=== PATIENT | male | born 1970 | race Caucasian/White ===

== ENCOUNTER 2020-09-01 11:07 | Emergency (ER) | payer OTHER, SELFPAY ==
[2020-09-01] VITALS (7 sets, daily range): BP systolic 120–163; BP diastolic 38–96; PULSE 68–92; RESP 18; TEMP 36.7; O2SAT 97–100
--- NOTE | ~2020-09-01 | CT_ITS ---
EXAMINATION: CT abdomen pelvis w con DATE: 09/01/2020 12:26 INDICATION: Left lower quadrant abdominal pain TECHNIQUE: Computed tomography (CT) of the abdomen and pelvis was performed with 100 cc Omnipaque 350 intravenous contrast. Automated exposure control and iterative reconstruction technique were employe d. Exam dose: 841.08 mGy-cm total exam DLP. COMPARISON: None. FINDINGS: The lung bases are clear. Normal heart size. No pericardial or pleural effusion. Small sliding hiatal hernia. The liver, gallbladder, bile ducts, pancreas and pancreatic duct appear normal. Normal splenic size. Normal morphology of the adrenal glands. No suspicious renal mass lesion is evident. No urinary tract calculus or hydroureteronephrosis. Normal caliber of the abdominal aorta. No intraperitoneal or retroperitoneal or pelvic mass lesion or adenopathy or ascites. Prostate enlargement and minimal calcification. The urinary bladder is unremarkable. Small fat-containing left inguinal hernia. There is focal fat stranding adjacent to the distal descending colon due to epiploic appendagitis. No bowel obstruction, bowel wall thickening, pneumatosis or intraperitoneal free air noted otherwise. L4 limbus vertebra. Diffuse idiopathic skeletal hyperostosis of the thoracic spine. No suspicious ost eolytic or osteoblastic lesions IMPRESSION: Epiploic appendagitis of the distal descending colon. This is usually self-contained and resolves spontaneously. Small sliding hiatal hernia Prostate enlargement and minimal calcification Small fat-containing left inguinal hernia Reviewed, dictated and finalized at [facility] Reviewed, dictated and finalized at [facility] [employer] CL[employer] IMPRESSION: Epiploic appendagitis of the distal descending colon. This is usua lly self-contained and resolves spontaneously. Small sliding hiatal hernia Prostate enlargement and minimal calcification Small fat-containing left inguinal hernia
[2020-09-01] MEDS: SODIUM CHLORIDE 0.9% IV 1,000 ML 999 ML IV CONT (11:26)
[2020-09-01 11:29] LABS: Basophils Absolute Auto 0.1 K/mm3 (0.0-0.1); Basophils Percent Auto 0.9 % (0.2-1.2); Eosinophils Absolute Auto 0.1 K/mm3 (0-0.3); Eosinophils Percent Auto 0.9 % (0-4.4); Hematocrit 46.7 % (42.0-52.0); Immature Granulocyte Absolute 0.09 K/mm3 (0.00-0.031); Immature Granulocyte Percent A 1.1 % (0-0.5); Lymphocytes Absolute Auto 2.07 K/mm3 (0.9-3.2); Lymphocytes Percent Auto 25.2 % (18.3-44.2); Mean Corpuscular HGB Conc 34.3 g/dl (32-36); Mean Corpuscular Hemoglobin 30.2 pg (26-34); Mean Corpuscular Volume 88.3 fl (80-100); Mean Platelet Volume 9.3 fl (7.4-10.4); Monocytes Absolute Auto 0.7 K/mm3 (0.1-0.6); Monocytes Percent Auto 8.3 % (2.6-8.5); Neutrophils Absolute Auto 5.3 K/mm3 (1.3-6.7); Neutrophils Percent Auto 63.6 % (45.5-73.1); Platelet Count Result 184 k/mm3 (150-375); Red Blood Count 5.29 M/mm3 (4.6-6.20); Red Cell Distribution Width 12.7 % (11.5-14.5); White Blood Count 8.2 K/mm3 (4.5-10.0)
--- NOTE | 2020-09-01 11:32 | ED.GENADULT ---
HPI - General Adult General Chief complaint: Abdominal Pain Stated complaint: left flank pain Time Seen by Provider: 09/01/20 11:10 Source: patient Mode of arrival: ambulatory Limitations: no limitations History of Present Illness HPI narrative: Patient is a 50-year-old male who presents to emergency department for evaluation of left lower abdominal pain. Patient notes that the pain began last night upon going to sleep was more mild in nature patient notes this morning it has intensified to moderate to severe in nature localized to the left lower abdomen and groin. Patient denies similar occurrence in the past recent illness or other complaints has not taken anything for his symptoms presents in no distress. Related Data Home Medications Medication Instructions Recorded Confirmed aspirin 325 mg PO DAILY 09/01/20 Allergies Allergy/AdvReac Type Severity Reaction Status Date / Time tetracycline Allergy Unknown Verified 09/01/20 11:18 Review of Systems Review of Systems: All systems reviewed & are unremarkable except as noted in HPI and below PMFSH Past Medical History Medical History Atrial fibrillation Social History Social History (Updated 09/01/20 @ 11:35 by Kamran Contreras PA-C) Smoking status: Never smoker Gender identity (if verbalized by the patient): Male Exam Narrative: Exam Narrative: GENERAL: Well-appearing, well-nourished, and in no acute distress. HEAD: Normocephalic, atraumatic. EYES: PERRLA and EOMI. ENT: Nares clear, no rhinorrhea or epistaxis. Mucous membranes moist. CHEST: Clear to auscultation. No respiratory distress. No wheezes rales or rhonchi HEART: Regular rate and rhythm. No murmur heard. Normal peripheral pulses. ABDOMEN: Soft, left upper and lower abdominal tenderness with voluntary guarding, nondistended EXTREMITIES: Normal range of motion. No edema. SKIN: Warm, dry, no rash. NEURO: No focal deficits. Alert and oriented x3. Cranial nerves II through XII grossly intact PSYCH: Normal mood and affect. Course Course Emergency Course: Patient in the room no distress with improvement with medications found to have epiploic appendagitis on imaging will be discharged home given primary care and GI follow-up also provided with reasons to return was given fluids and medications in the emergency department with improvement patient is afebrile nontoxic-appearing no distress ABCs and vital signs intact and stable Vital Signs Vital signs: Vital Signs Temperature 98.1 F 09/01/20 11:15 Pulse Rate 92 09/01/20 11:15 Respiratory Rate 18 09/01/20 11:15 Blood Pressure 163/96 H 09/01/20 11:15 Pulse Oximetry 100 09/01/20 11:15 Temperature 98.1 F 09/01/20 11:55 Pulse Rate 78 09/01/20 12:37 Respiratory Rate 18 09/01/20 12:37 Blood Pressure 149/90 H 09/01/20 12:37 Pulse Oximetry 100 09/01/20 12:37 Medical Decision Making MDM Narrative Medical decision making narrative: Patient presented with left lower quadrant abdominal pain diagnosed as epiploic appendagitis felt appropriate for outpatient reevaluation no other high risk changes given reasons to return hemodynamically stable Vital Signs Vital Signs: Vital Signs Temperature 98.1 F 09/01/20 11:15 Pulse Rate 92 09/01/20 11:15 Respiratory Rate 18 09/01/20 11:15 Blood Pressure 163/96 H 09/01/20 11:15 Pulse Oximetry 100 09/01/20 11:15 Temperature 98.1 F 09/01/20 11:55 Pulse Rate 78 09/01/20 12:37 Respiratory Rate 18 09/01/20 12:37 Blood Pressure 149/90 H 09/01/20 12:37 Pulse Oximetry 100 09/01/20 12:37 Lab Data Result diagrams: 09/01/20 11:24 09/01/20 11:24 Labs: Lab Results 09/01/20 09/01/20 09/01/20 Range/Units 11:24 11:24 11:39 WBC 8.2 (4.5-10.0) K/mm3 RBC 5.29 (4.6-6.20) M/mm3 Hgb 16.0 (14.0-18.0) g/dL Hct 46.7 (42.0-52.0) % MCV 88.3 (80-100)
[2020-09-01 11:44] LABS: Alanine Aminotransferase 21 U/L (4-50); Albumin Level 4.4 g/dL (3.5-5.1); Alkaline Phosphatase 54 U/L (38-126); Anion Gap 8 mmol/L (8-16); Aspartate Amino Transferase 25 U/L (17-59); Bilirubin,Total 0.6 mg/dL (0.2-1.3); Blood Urea Nitrogen 21 mg/dL (9-20); Calcium 9.4 mg/dL (8.4-10.2); Carbon Dioxide 27 mmol/L (22-30); Chloride 105 mmol/L (98-107); Estimated CRCL calculation 90 ml/min; Estimated Glomerular Filt Rate > 60; Glucose 111 mg/dL (75-110); Lipase 125 U/L (23-300); Potassium 3.8 mmol/L (3.4-5.0); Sodium 140 mmol/L (137-145)
[2020-09-01 11:50] LABS: Add Urine Microscopic? NO; Appearance Urine Clear (Clear); Bilirubin Urine Negative (Negative); Blood Urine Negative (Negative); Color Urine Yellow (Yellow); Glucose Urine UA Negative (Negative); Ketones Urine Negative (Negative); Leukocyte Esterase Ur Negative LEU/UL (Negative); Nitrate Urine Negative (Negative); Protein Urine Negative (Negative); Specific Grav Ur 1.017 (1.001-1.035); Urobilinogen Urine Negative mg/dL (<2.0)
[2020-09-01] MEDS: MORPHINE SULFATE (*CRX) 4 MG/ML INJ IV PUSH (12:36)
[2020-09-01] MEDS: KETOROLAC 30 MG/ML VIAL (*BKC) IV PUSH (13:11)
== END 2020-09-01 13:58 | disposition home or self-care (01) ==
PROVIDERS: Emergency Medicine Emergency Medical Services; Emergency Provider Emergency Medicine
DX: K63.89 Other specified diseases of intestine (principal); I48.91 Unspecified atrial fibrillation; Z79.82 Long term (current) use of aspirin
CPT/HCPCS: 36415; 74177; 80053; 81003; 83690; 85025; 96365; 96375; 99284; J0131; J1885; J2270; J7030; Q9967

== ENCOUNTER 2020-10-20 15:49 | Observation (INO) | payer OTHER, SELFPAY ==
[2020-10-20] VITALS (10 sets, daily range): BP systolic 103–120; BP diastolic 67–96; PULSE 79–114; RESP 15–18; TEMP 36.7–37.2; O2SAT 94–98; BMI 29.2
--- NOTE | ~2020-10-20 | CT_ITS ---
EXAMINATION: CTA chest PE protocol DATE: 10/20/2020 19:58 INDICATION: Shortness of breath. Covid-positive. TECHNIQUE: Computed tomography angiography (CTA) of the chest was performed with 100 mL Omnipaque-350 intravenous contrast timed to evaluate the pulmonary arteries. Coronal maximum intensity projection 3D-reconstructions were created by the technologist. Automated exposure control and iterative reconst ruction technique were employed. Exam dose: 442.73 mGy-cm total exam DLP. COMPARISON: 10/20/2020 portable AP chest FINDINGS: There is diagnostic contrast enhancement of the pulmonary artery no evidence of pulmonary e mbolism. No hilar or mediastinal mass lesion or lymphadenopathy. No thoracic aortic aneurysm or dissection. Normal heart size. Coronary artery calcifications. Calcified right hilar and subcarinal nodes consistent with old pulmonary granulomatous disease. No pericardial or pleural effusion. Extensive patchy groundglass infiltrates are scattered throughout both lungs including upper and lowe r lobes and middle lobe. Normal morphology of the adrenal glands. Small sliding hiatal hernia. Diffuse idiopathic skeletal hyperostosis of the lower thoracic spine. No suspicious osteolytic or osteoblastic lesions. IMPRESSION: Extensive patchy scattered bilateral pulmonary groundglass opacities consistent with tosha ateral pneumonia Reviewed, dictated and finalized at [facility] Reviewed, dictated and finalized at [facility]. IMPRESSION: Extensive patchy scattered bilateral pulmonary groundglass opaciti es consistent with bilateral pneumonia
--- NOTE | ~2020-10-20 | XR_ITS ---
XR chest 1V portable DATE: 10/20/2020 16:58 INDICATION: Cough, congestion, fever, body aches TECHNIQUE: Portable AP chest on 10/20/2020 at 1659 hours COMPARISON: None FINDINGS: Heart size is normal. There are patchy infiltrates predominantly in the mid and to a greater extent lower lung zones sugges ting bilateral pneumonia. No pleural effusion or pulmonary mass congestion or pneumothorax is detected. IMPRESSION: Patchy bilateral predominantly mid mid and lower lung infiltrate Reviewed, dictated and finalized at [facility].
--- NOTE | 2020-10-20 16:16 | ECG_ITS ---
Measurements Intervals [place] Rate: 83 P: 36 NM: 149 QRS: 24 QRSD: 74 T: 29 QT: 327 QTc: 386 Interpretive Statements SINUS RHYTHM NORMAL ECG Electronically Signed On 10-20-2020 17:49:35 CDT by Ricardo Stevens D.O.
--- NOTE | 2020-10-20 16:30 | ED.GENADULT ---
HPI - General Adult General Chief complaint: Upper Respiratory Infection <BRAULIO Whittington Last Filed: 10/20/20 20:38> Stated complaint: covid +, still sick <BRAULIO Whittington Last Filed: 10/20/20 20:38> Time Seen by Provider: 10/20/20 16:15 <BRAULIO Whittington Last Filed: 10/20/20 20:38> Source: patient <BRAULIO Whittington Last Filed: 10/20/20 20:38> Mode of arrival: ambulatory <BRAULIO Whittington Last Filed: 10/20/20 20:38> Limitations: no limitations <BRAULIO Whittington Last Filed: 10/20/20 20:38> History of Present Illness HPI narrative: Patient is a 50-year-old male who presents to emergency department for evaluation feeling ill fatigued day 8 of his Covid illness has been taking [id number] medications with minimal improvement denies chest pain or dyspnea at this time notes that his cough is nonproductive. Patient notes some loose stools but denies vomiting does not currently have a primary care to follow-up. Patient has history of atrial fibrillation historically on metoprolol has not taken this medication for over a year does not have established primary care or specialty services <BRAULIO Whittington Last Filed: 10/20/20 20:38> Related Data Home medications: Home Medications Medication Instructions Recorded Confirmed No Home Medications 10/20/20 10/20/20 <BRAULIO Whittington Last Filed: 10/20/20 20:38> Allergies/adverse reactions: Allergies Allergy/AdvReac Type Severity Reaction Status Date / Time tetracycline Allergy Unknown Verified 10/20/20 22:14 <BRAULIO Whittington Last Filed: 10/20/20 20:38> Review of Systems Review of Systems: All systems reviewed & are unremarkable except as noted in HPI and below <BRAULIO Whittington Last Filed: 10/20/20 20:38> PMFSH Past Medical History Medical History: Medical History (Updated 10/20/20 @ 21:45 by Annika Rosen DO) Atrial fibrillation <BRAULIO Whittington Last Filed: 10/20/20 20:38> Social History Social History: Social History Smoking status: Never smoker Alcohol intake: current Substance use: never Gender identity (if verbalized by the patient): Male Sexual Orientation (if Verbalized by the Patient): Straight or Heterosexual Spiritual care concerns: No <Kamran Contreras PA-C - Last Filed: 10/20/20 20:38> Exam Narrative: Exam Narrative: GENERAL: Ill-appearing, well-nourished, and in no acute distress. HEAD: Normocephalic, atraumatic. EYES: PERRLA and EOMI. ENT: Nares clear, no rhinorrhea or epistaxis. Mucous membranes moist. CHEST: Clear to auscultation. No respiratory distress. No wheezes rales or rhonchi HEART: Irregularly irregular rate and rhythm. No murmur heard. Normal peripheral pulses. ABDOMEN: Soft, nontender, nondistended. EXTREMITIES: Normal range of motion. No edema. SKIN: Warm, dry, no rash. NEURO: No focal deficits. Alert and oriented x3. Cranial nerves II through XII grossly intact PSYCH: Normal mood and affect. <Kamran Contreras PA-C - Last Filed: 10/20/20 20:38> Course Course Emergency Course: Patient evaluated found to not have PE he does have Covid pneumonia with dehydration and currently in atrial fibrillation with RVR was given Lopressor will be given his oral dose of metoprolol as recommended by cardiology will be admitted to the hospitalist service with cardiology consult. Patient hydrated in the emergency department. Patient hemodynamically stable afebrile nontoxic-appearing without emesis patient agrees with this plan <Kamran Contreras PA-C - Last Filed: 10/20/20 20:38> SOCIAL WORK FACULTY MEMBER/PA Physician Supervision For this patient encounter, I reviewed the SOCIAL WORK FACULTY MEMBER or PA documentation, treatment plan, and medical decision making; and I had [id number] time with this patient. 50 yo male w/ h/o atrial fibrillation pre
[2020-10-20 16:57] LABS: Basophils Percent Auto 0.2 % (0.2-1.2); Hemoglobin 15.4 g/dL (14.0-18.0); Immature Granulocyte Absolute 0.05 K/mm3 (0.00-0.031); Immature Granulocyte Percent A 1.1 % (0-0.5); Lymphocytes Absolute Auto 0.88 K/mm3 (0.9-3.2); Lymphocytes Percent Auto 20.1 % (18.3-44.2); Mean Corpuscular Hemoglobin 29.9 pg (26-34); Mean Corpuscular Volume 85.4 fl (80-100); Mean Platelet Volume 9.4 fl (7.4-10.4); Monocytes Absolute Auto 0.3 K/mm3 (0.1-0.6); Monocytes Percent Auto 6.2 % (2.6-8.5); Neutrophils Absolute Auto 3.2 K/mm3 (1.3-6.7); Neutrophils Percent Auto 72.4 % (45.5-73.1); Platelet Count Result 141 k/mm3 (150-375); Red Blood Count 5.15 M/mm3 (4.6-6.20); Red Cell Distribution Width 12.9 % (11.5-14.5); White Blood Count 4.4 K/mm3 (4.5-10.0)
[2020-10-20 17:06] LABS: Prothrombin Time 13.7 Seconds (11.1-14.7)
[2020-10-20 17:07] LABS: Partial Thromboplastin Time 31.5 SECONDS (22.3-36.8)
[2020-10-20 17:09] LABS: Alanine Aminotransferase 37 U/L (4-50); Alkaline Phosphatase 55 U/L (38-126); Anion Gap 8 mmol/L (8-16); Aspartate Amino Transferase 71 U/L (17-59); Bilirubin,Total 0.6 mg/dL (0.2-1.3); Blood Urea Nitrogen 27 mg/dL (9-20); CRP 5.6 mg/dL (<1.0); Calcium 8.8 mg/dL (8.4-10.2); Carbon Dioxide 25 mmol/L (22-30); Chloride 103 mmol/L (98-107); D Dimer 0.55 ug/mL (<0.48); Estimated CRCL calculation 82 ml/min; Estimated Glomerular Filt Rate > 60; Glucose 102 mg/dL (75-110); Potassium 4.1 mmol/L (3.4-5.0); Sodium 136 mmol/L (137-145)
[2020-10-20] MEDS: DEXAMETHASONE SOD PHOS INJ 4 MG/ML VIAL 10 MG IV PUSH (17:24)
[2020-10-20] MEDS: FAMOTIDINE 20 MG/2 ML VIAL IV PUSH (17:27)
[2020-10-20] MEDS: SODIUM CHLORIDE 0.9% IV 1,000 ML 999 ML IV CONT ×2 (17:28→20:14)
--- NOTE | 2020-10-20 19:20 | PC.NURSE ---
assumed care of pt at this time, received report from nasir cassidy
[2020-10-20] MEDS: METOPROLOL TARTRATE INJ 5 MG/5 ML VIAL IV PUSH (20:30)
[2020-10-20] MEDS: METOPROLOL SUCCINATE EXT REL 12.5 MG TABCR PO (21:03)
[2020-10-20 21:19] LABS: Cholesterol 138 mg/dL (0-200); HDL Direct 26 mg/dL; Triglycerides 238 mg/dL (<150)
[2020-10-20 21:29] LABS: LDL Cholesterol Direct 67 mg/dL
--- NOTE | 2020-10-20 21:42 | PM.IMHP ---
H&P: HPI History of Present Illness Date/Time: 10/20/20 21:42 Chief Complaint: COVID not getting better Narrative: 50-year-old male past medical history of atrial fibrillation and recent COVID diagnosis who presented to the ER with respiratory symptoms not getting better. The patient reports that he is and is son have been ill with COVID-19. He has had 8 days of symptoms. His initial symptoms started with cough and body aches. Over the following days he developed loss of sense of taste and smell as well as some watery diarrhea. He reports his diarrhea has pretty much resolved. He reports that his cough is been persistent. He has significant postnasal drip. He has a decreased appetite. He denies any nausea or vomiting. He had some subjective fevers but states that his temperature was never above 99?. He did have significant chills. His respiratory symptoms really have not worsened. He has been taking [id number] medications with minimal improvement in his symptoms. He has not had any chest pain or dyspnea. His cough is nonproductive. He does have a history of paroxysmal atrial fibrillation. He reports the times a day he is stressed he can go into atrial fibrillation. He used to be on metoprolol 12.5 mg p.o. reports atrial fibrillation. He reported that he was only supposed to take the medication if he was having AFib symptoms. He states that he always knows when he goes into AFib. He quit taking the metoprolol as he felt it did not decrease duration or frequency of his symptoms. He has not taken the medications in at least 10 months. He denies any dyspnea on exertion. He reports that he works out 5 days a week on average. He does not have a history of hypertension. Review of Systems Review of Systems: Narrative: 12 systems were reviewed with pertinent positives and negatives per HPI. Except as documented in the HPI, all other systems were reviewed and are negative. [facility] Past Medical History Medical History (Updated 10/20/20 @ 21:45 by Annika Rosen DO) Atrial fibrillation Social History Social History Smoking status: Never smoker Alcohol intake: current Substance use: never Gender identity (if verbalized by the patient): Male Sexual Orientation (if Verbalized by the Patient): Straight or Heterosexual Spiritual care concerns: No Meds Home Medications and Allergies Home Medications Medication Instructions Recorded Confirmed Type No Home Medications 10/20/20 10/20/20 History Allergies Allergy/AdvReac Type Severity Reaction Status Date / Time tetracycline Allergy Unknown Verified 10/20/20 22:14 Vital Signs Vital Signs - 24 hr 10/20/20 15:50 10/20/20 18:46 10/20/20 18:55 Temperature 99 F Pulse Rate 92 104 H Respiratory Rate 18 16 Blood Pressure 113/79 119/96 H Pulse Oximetry 98 94 97 10/20/20 19:43 10/20/20 20:19 10/20/20 20:30 Temperature 98.0 F Pulse Rate 110 H 114 H Respiratory Rate 15 Blood Pressure Pulse Oximetry 97 10/20/20 21:03 Temperature Pulse Rate 87 Respiratory Rate Blood Pressure Pulse Oximetry Exam Narrative: Exam Narrative: PHYSICAL EXAM: WEIGHT 92.5 kg BMI 29.3 General: Well-developed, well-nourished, appears stated age HEENT: Mucous membranes are moist, no oral pharyngeal erythema, good dentition Respiratory: Faint expiratory wheezing, no increased work of breathing Cardiovascular: Irregularly irregular, rate controlled, 2+ bilateral radial pedal pulses Gastrointestinal: Soft, nontender, nondistended, positive bowel sounds Skin: No jaundice, no pallor Musculoskeletal: No clubbing, cyanosis or edema Neurological: Alert and oriented, speech is clear, no facial asymmetry Psychiatric: Appropriate mood and affect, pleasant and cooperative : Deferred Hematologic/lymphatic: No petechiae, bruising or significant lymphadenopathy H&P: Results Lab
--- NOTE | 2020-10-20 22:02 | ADMGEN ---
This patient, Zechariah Bella, was admitted to [facility] Surg Room 330-01. Patient/family oriented to hospital policies and general routines including ID bracelet, bed and alarms, visiting hours, pain management, procedures, bathroom and other care routines, personal items, smoking policy, room service/diet, and visiting hours. Information on how to activate the Rapid Response Team has been discussed. Patient/Family are encouraged to report perceived risks to care and to ask questions if they do not understand what they are told or what they should do.
[2020-10-21] VITALS (9 sets, daily range): BP systolic 105–120; BP diastolic 75–81; PULSE 76–92; RESP 16–18; TEMP 36.6–36.8; O2SAT 96–98
[2020-10-21] MEDS: METOPROLOL SUCCINATE EXT REL 12.5 MG TABCR PO (09:15)
[2020-10-21] MEDS: guaiFENesin 12 HR 600 MG TABCR 1200 MG PO (09:15)
[2020-10-21] MEDS: ENOXAPARIN 40 MG/0.4 ML SYRINGE SUB-Q (09:15)
--- NOTE | 2020-10-21 11:07 | PM.PNCARD ---
Progress Note: A&P Assessment and Plan (1) Atrial fibrillation with rapid ventricular response: Code(s): I48.91 - Unspecified atrial fibrillation Status: Acute Assessment and Plan: History of paroxysmal atrial fibrillation which generally has not been too bothersome for this patient. Recurrent AFib in the setting of COVID pneumonia, not surprising in view of the physiologic stress. Recommend daily metoprolol for rate control. CHADS2 Vasc score is 0, so at low risk of cardioembolic events, and we can continue aspirin 325 mg daily and no anticoagulation. However if the patient has persistent atrial fibrillation and we entertain cardioversion, he will need to be on anticoagulant. We will follow up as an outpatient. Will give an extra 25 mg metoprolol tartrate now and increase his daily metoprolol succinate to 25 mg daily. Rate seems reasonably controlled. Counseled the patient about general treatment of atrial fibrillation: P.r.n. medication, daily medication, ablation etc.. (2) Pneumonia due to 2019 novel coronavirus: Code(s): U07.1 - COVID-19; J12.82 - Pneumonia due to coronavirus disease 2019 Status: Acute Assessment and Plan: Very tired with frequent coughing but not hypoxic. Probably discharge today. Subjective Date/time seen: 10/21/20 11:07 Interval history: Date of service 10/21/2020 Mr. Zechariah Bella is a 50-year-old male with history of paroxysmal atrial fibrillation. I was asked to see the pt at the request of the ER physician and hospitalist for my advice and opinion regarding his AFib in consultation. The pt contracted COVID pneumonia nine days ago and came to the emergency room yesterday with extreme fatigue. In the ER he went into AFib RVR. His heart rate was 100-120 beats per minute and he was given Lopressor 5 mg IV push, with improvement of heart rate. Overnight his a fib rate has been running 60-70 when asleep and currently 88-105 while awake. He was also given metop succ 12.5 mg this a.m. Mr. Bella has had paroxysmal atrial fibrillation for 3 years. Previously took metoprolol p.r.n. for an episode. He moved from [place] to [facility] and has not yet established care with a office administration instructor here. He has been out of medications for year. His episodes can occur a couple times a week to once every 3 months and can last up to 24 hours. They can be provoked by stress or being startled. He has had echoes in the past which are normal. He has no problems with exertional chest pain or shortness of breath in general although of course, now, he is complaining of shortness of breath and cough. He is thought not hypoxic and thought perhaps able to be discharged today. There is no history of any other heart disease, hypertension, sleep apnea, or thyroid disease. Minimal alcohol intake since diagnosis of atrial fibrillation. Review of Systems Constitutional: Constitutional: Reports fatigue, Reports lethargy and Reports weakness Eyes: Eyes: Reports no additional eye complaints ENT: Denies nasal discharge Cardiovascular: Cardiovascular: Denies chest pain, Denies pedal edema, Denies leg edema and Reports palpitations Respiratory: Respiratory: Reports chest congestion, Reports cough, Denies hemoptysis, Reports dyspnea and Reports dyspnea on exertion Gastrointestinal: Gastrointestinal: Denies abdominal pain Genitourinary: Genitourinary: Denies dysuria Musculoskeletal: Musculoskeletal: Denies back pain Integumentary/Breasts: Skin/Breast: Denies rash Neurologic: Denies confusion Psychiatric: Psychiatric: Denies confusion Exam Narrative: Exam Narrative: Middle-aged male who is alert but having frequent coughing and appears to feel tired. Const: General: no acute distress and uncomfortable HENMT:
[2020-10-21] MEDS: METOPROLOL TARTRATE 25 MG TABLET PO (12:10)
[2020-10-21] MEDS: ACETAMINOPHEN 325 MG TABLET 650 MG PO (12:11)
--- NOTE | 2020-10-21 12:36 | PM.DS ---
DS: Admitting Diagnosis Admitting Diagnosis Admitting Diagnosis: Fatigue, palpitations DS: Discharge Diagnosis Discharge Diagnosis (1) Pneumonia due to 2019 novel coronavirus: Code(s): U07.1 - COVID-19; J12.82 - Pneumonia due to coronavirus disease 2019 Status: Acute (2) Atrial fibrillation: Qualifiers: Atrial fibrillation type: paroxysmal Qualified Code(s): I48.0 - Paroxysmal atrial fibrillation Code(s): I48.91 - Unspecified atrial fibrillation Status: Acute (3) Non-adherence to medical treatment: Code(s): Z91.19 - Patient's noncompliance with other medical treatment and regimen Status: Acute DS: Summary Hospital Course Reason for hospitalization: Patient is a 50-year-old man with a history of paroxysmal atrial fibrillation and reports is on metoprolol as needed for AFib episodes who presents emergency room after being diagnosed with COVID-19 on 10/13/20 and was not feeling any better. Patient continues to have a nonproductive cough, very fatigued and sleeping almost 20 hours a day, lack of appetite due to decreased taste sensation, and developed some shortness of breath which brought him into the ER. Showed the patient was afebrile, non tachycardic, blood pressure 113/79, respiratory rate 18, oxygen saturation 98% on room air. While the patient was in the emergency room he went into atrial fibrillation with rapid ventricular response. They called the specialist wound care, Dr. Garcia, who recommended giving the patient oral metoprolol. Patient was admitted to the hospitalist service for further evaluation, monitoring and symptomatic treatment of COVID. Patient was monitored on telemetry which continue to be in atrial fibrillation. He was evaluated by the specialist wound care to increased his metoprolol to 25 mg daily which rate controlled his AFib. Cardiology recommended him taking a full-dose aspirin daily due to his low chads Vasc score. Recommended a follow-up in the office as an outpatient for further evaluation and monitoring. The patient's acute AFib is due to his underlying COVID infection. During his hospitalization he did not require any oxygen. He continues to have a nonproductive cough. He has been afebrile. Will discharge him home on dexamethasone for 10 days, p.r.n. cough medication and conservative treatment. Patient understands and agrees the plan all questions answered. Hospital Course: See above Status at Discharge Cognitive/behavioral status at discharge: Stable, improved. Time Spent with Patient Time attestation: Total time spent providing and/or coordinating discharge services: 42 Time spent: Greater than 30 minutes Exam Narrative: Exam Narrative: General: 50-year-old man sitting up in bed on his phone. Appears comfortable. In no acute distress. Skin: No jaundice or cyanosis. Good skin turgor. Neck: Full range of motion. Supple. Respiratory: Crackles noted to bilateral lung aguilar. No wheezing. No bony chest wall tenderness. Cardiovascular: The heart has a regular rate and rhythm without murmur. Lower extremities: No lower extremity edema. Distal pulses are easily palpated. No calf tenderness to palpation. Gastrointestinal: The abdomen is soft, nontender and nondistended with active bowel sounds. Psychiatric: Lucid and oriented. Memory intact. Neurologic: No focal deficits. Speech is clear. No facial drooping. DS: Data Data Completed and Pending Labs on day of discharge: Labs from last 24 hours 10/20/20 10/20/20 10/20/20 16:52 16:42 16:42 WBC RBC Hgb Hct MCV MCH MCHC RDW Plt Count MPV Immature Gran % (Auto) Neut % (Auto) Lymph % (Auto) Garden % (Auto) Eos % (Auto) Baso % (Auto) Lymph # (Auto) [place] # (Auto) Eos # (Auto) Baso # (Auto) Abs Immat Gran (auto) Absolute Neuts (auto) Absolute Nucleated RBC Nucleated RBC % PT
[2020-10-21] MEDS: ALBUTEROL SULFATE (*SP) INHALER 2 PUFF INHALATION (15:51)
--- NOTE | 2020-10-21 19:49 | PC.NURSE ---
Patient unable to get prescriptions at [facility] as it is closed. [facility] in [place] contacted and prescriptions transmitted there. Marce given list of RX to look for. Floor number provided if issues arise.
== END 2020-10-21 19:16 | disposition home or self-care (01) ==
LOC: ANHED 21:05 → ANH3MEDSUR 21:07
PROVIDERS: Emergency Medicine Emergency Medical Services; Admitting Provider Internal Medicine; Emergency Provider Emergency Medicine; Visit Provider Internal Medicine
DX: U07.1 COVID-19 (principal); J12.82 Pneumonia due to coronavirus disease 2019; I48.91 Unspecified atrial fibrillation; Z91.19 Patient's noncompliance with other medical treatment and regimen
CPT/HCPCS: 36415; 71045; 71275; 80053; 80061; 83605; 85025; 85380; 85610; 85730; 86140; 93005; 94640; 96361; 96365; 96372; 96375; 99285; A9270; G0378; J0131; J1100; J1650; J7030; Q9967

== ENCOUNTER 2020-10-27 17:08 | Emergency (ER) | payer OTHER, SELFPAY ==
[2020-10-27] VITALS (8 sets, daily range): BP systolic 118–128; BP diastolic 76–84; PULSE 64–84; RESP 18–22; TEMP 36.9–37.4; O2SAT 95–98
--- NOTE | ~2020-10-27 | CT_ITS ---
EXAMINATION: CTA chest PE protocol DATE: 10/27/2020 18:49 CDT INDICATION: Chest pain. Covid infection. TECHNIQUE: Computed tomographic angiography (CTA) of the chest was performed with 100 mL Omnipaque-35 0 intravenous contrast. The dose-length product was 514.28 mGy-cm. Maximum intensity projection 3D-re constructions of the aorta and other arteries were constructed by the technologist on a separate work station. Automated exposure control and iterative reconstruction technique were employed. COMPARISON: CT dated 10/20/2020. FINDINGS: Study is technically limited for evaluation of peripheral pulmonary arteries due to motion artifact. No central pulmonary embolism. No thoracic lymphadenopathy. Cardiomegaly. Small pleural eff usions. No pericardial effusion. No evidence for aortic aneurysm or dissection. There has been signif icant progression of patchy bilateral airspace consolidation, consistent with pneumonia. Small hiatal hernia. The upper abdomen is unremarkable. IMPRESSION: 1. Progression of patchy bilateral airspace consolidation, consistent with pneumonia. Reviewed, dictated and finalized at location A. IMPRESSION: 1. Progression of patchy bilateral airspace consolidation, consistent with pneu monia.
--- NOTE | 2020-10-27 17:28 | ECG_ITS ---
Measurements Intervals [place] Rate: 74 P: 30 AK: 158 QRS: 4 QRSD: 77 T: 18 QT: 343 QTc: 382 Interpretive Statements SINUS RHYTHM BORDERLINE T WAVE ABNORMALITY- INFERIOR LEADS BASELINE ARTIFACT- I, II, III, AVR, AVL,A VF BORDERLINE ECG Electronically Signed On 10-27-2020 18:59:35 CDT by Ricardo Stevens D.O.
--- NOTE | 2020-10-27 17:50 | ED.GENADULT ---
HPI - General Adult General Chief complaint: Shortness of Breath/Dyspnea Stated complaint: Cant take Deep Breath, COVID Positive Time Seen by Provider: 10/27/20 17:16 Source: patient History of Present Illness HPI narrative: Patient presents for evaluation of right-sided posterior pleuritic pain for the last hour. He was diagnosed with Covid on 10/13/2020 while out of town in [place] for work. He presented to this emergency department 10/20/2020 with respiratory complaints. At that time he was found to be in A. fib with RVR. D-dimer slightly prominent but CTA of chest was negative for PE. Cardiology recommended giving the patient oral metoprolol. He was admitted to the hospitalist service monitored on telemetry. Cardiology recommended that he take full dose aspirin and follow-up outpatient for further evaluation and treatment. He states that since the time of his hospital discharge he has been laying around at home. States that 1 hour ago he felt sudden onset pain in his right posterior ribs, worse with deep inspiration. He is unable to confidently state whether he feels SOB, as he has experienced some respiratory complaints for the last few weeks. He denies any fever, chills, chest pain. She does not smoke. No history of VTE. No recent surgeries. Not anticoagulated. He tried taking OTC meds for pain but they were ineffective. Related Data Allergies Allergy/AdvReac Type Severity Reaction Status Date / Time tetracycline Allergy Unknown Verified 10/27/20 17:17 Review of Systems Review of Systems: Narrative: CONSTITUTIONAL: Denies fever, chills, or sweats. EYES: Denies visual changes, redness, or discharge. ENT: Denies rhinorrhea, congestion, sore throat, or otalgia. CARDIOVASCULAR: Reports pain in right posterior ribs, worse in inspiration and cough. RESPIRATORY: Reports cough. GASTROINTESTINAL: Denies abdominal pain, nausea, vomiting, or diarrhea. GENITOURINARY: Denies dysuria or hematuria. SKIN: Denies rash or itching. MUSCULOSKELETAL: Denies back pain, joint pain, or myalgia. NEUROLOGIC: Denies headache, numbness, dizziness, or weakness. PSYCHIATRIC: Denies anxiety or depression. [facility] Past Medical History Medical History Atrial fibrillation Surgical History Surgical History History of appendectomy History of tonsillectomy and adenoidectomy Social History Social History Smoking status: Never smoker Alcohol intake: current Substance use: never Gender identity (if verbalized by the patient): Male Spiritual care concerns: No Exam Narrative: Exam Narrative: GENERAL: Well-appearing, well-nourished, and in no acute distress. HEAD: Normocephalic, atraumatic. EYES: PERRLA and EOMI. ENT: Nares clear, no rhinorrhea or epistaxis. Mucous membranes moist. Oropharynx without tonsillar hypertrophy exudate or other lesions. Bilateral TMs pearly law nonbulging NECK: Supple. No adenopathy or masses. No carotid bruits or JVD CHEST: Clear to auscultation. No respiratory distress. No wheezes rales or rhonchi. Mild tenderness over right posterior ribs. Cough noted on exam HEART: Regular rate and rhythm. No murmur heard. Normal peripheral pulses. ABDOMEN: Soft, nontender, nondistended, normal active bowel sounds. EXTREMITIES: Normal range of motion. No edema. SKIN: Warm, dry, no rash. NEURO: No focal deficits. Alert and oriented x3. PSYCH: Normal mood and affect. Course Course Emergency Course: This is a 50-year-old male who presented with reports of right-sided pleuritic pain that started 1 hour prior to arrival. EKG showed sinus rhythm rate of 74. There is no ischemic changes noted. Reviewed prior records and he had a bump in his D-dimer during his last ER visit. Given history of Covid CTA was ordered today was negative for pulmon
[2020-10-27] MEDS: MORPHINE SULFATE (*CRX) 2 MG/ML INJ IV PUSH (18:03)
[2020-10-27] MEDS: SODIUM CHLORIDE 0.9% IV 1,000 ML 999 ML IV CONT (18:03)
[2020-10-27 18:10] LABS: Basophils Absolute Auto 0.1 K/mm3 (0.0-0.1); Basophils Percent Auto 0.5 % (0.2-1.2); Eosinophils Absolute Auto 0.1 K/mm3 (0-0.3); Eosinophils Percent Auto 0.6 % (0-4.4); Hematocrit 42.7 % (42.0-52.0); Hemoglobin 14.5 g/dL (14.0-18.0); Immature Granulocyte Percent A 2.8 % (0-0.5); Lymphocytes Absolute Auto 0.95 K/mm3 (0.9-3.2); Lymphocytes Percent Auto 8.7 % (18.3-44.2); Mean Corpuscular Hemoglobin 29.5 pg (26-34); Mean Corpuscular Volume 86.8 fl (80-100); Monocytes Absolute Auto 0.8 K/mm3 (0.1-0.6); Monocytes Percent Auto 6.9 % (2.6-8.5); Neutrophils Absolute Auto 8.8 K/mm3 (1.3-6.7); Neutrophils Percent Auto 80.5 % (45.5-73.1); Platelet Count Result 239 k/mm3 (150-375); Red Blood Count 4.92 M/mm3 (4.6-6.20); Red Cell Distribution Width 12.8 % (11.5-14.5); White Blood Count 10.9 K/mm3 (4.5-10.0)
[2020-10-27 18:20] LABS: INR 1.6; Prothrombin Time 19.4 Seconds (11.1-14.7)
[2020-10-27 18:21] LABS: Alanine Aminotransferase 59 U/L (4-50); Albumin Level 3.5 g/dL (3.5-5.1); Alkaline Phosphatase 53 U/L (38-126); Anion Gap 8 mmol/L (8-16); Aspartate Amino Transferase 47 U/L (17-59); Bilirubin,Total 1.1 mg/dL (0.2-1.3); Blood Urea Nitrogen 22 mg/dL (9-20); Calcium 8.7 mg/dL (8.4-10.2); Carbon Dioxide 27 mmol/L (22-30); Chloride 105 mmol/L (98-107); Estimated CRCL calculation 99 ml/min; Estimated Glomerular Filt Rate > 60; Glucose 100 mg/dL (75-110); Partial Thromboplastin Time 32.5 SECONDS (22.3-36.8); Potassium 3.5 mmol/L (3.4-5.0); Sodium 140 mmol/L (137-145)
[2020-10-27 18:32] LABS: Troponin I < 0.012 ng/mL (0.000-0.034)
[2020-10-27] MEDS: KETOROLAC 30 MG/ML VIAL (*BKC) IV PUSH (19:15)
--- NOTE | 2020-10-27 19:15 | PC.NURSE ---
Pt presents to ED with complaints of cough due to covid for the past two weeks. Pt noted with dry intermittent cough and is afebrile at this time. Pt states pain persists and is rated 7/10 at this time. Pt noted to be alert and oriented x4 with stable vitals. Breathing even and unlabored with O2 saturation of 95% on room air. Pt in room talking on phone and is in no obvious distress at this time. Requesting water at this time and will verify with MD if ok. Pt with call button and personal items within reach. Advised to press call button for assistance.
--- NOTE | 2020-10-27 20:17 | PC.NURSE ---
Pt ambulated in beltran to monitor O2 saturations. Pt saturating at 96% on room and in no distress with even and unlabored breathing. Will notify ED provider.
--- NOTE | 2020-10-27 20:33 | PC.NURSE ---
ED provider notified of pt ambulation status. No new orders given at this time.
--- NOTE | 2020-10-27 21:05 | PC.NURSE ---
ED provider to bedside to update pt on poc. All questions and concerns addressed.
== END 2020-10-27 21:35 | disposition home or self-care (01) ==
PROVIDERS: Emergency Provider Nurse Practitioner
DX: U07.1 COVID-19 (principal); J12.82 Pneumonia due to coronavirus disease 2019; M79.10 Myalgia, unspecified site; I48.91 Unspecified atrial fibrillation; R94.31 Abnormal electrocardiogram [ECG] [EKG]
CPT/HCPCS: 36415; 71275; 80053; 84484; 85025; 85610; 85730; 93005; 96361; 96374; 96375; 99284; J1885; J2270; J7030; Q9967

== ENCOUNTER 2020-11-06 16:50 | Outpatient (CLI) | payer OTHER, SELFPAY ==
--- NOTE | ~2020-11-06 | US_ITS ---
EXAMINATION: US venous doppler LE RT DATE: 11/06/2020 17:17 INDICATION: Lower limb swelling. TECHNIQUE: Grayscale ultrasound images without and with compression and Doppler ultrasound images of the right lower extremity veins were obtained. COMPARISON: None. FINDINGS: Noncompressible occlusive appearing thrombus in the paired right peroneal and posterior tibial veins and gastrocnemius vein at the calf with thrombus extending proximally through the popliteal and femor al veins. The visualized portions of right common femoral vein, profunda (deep) femoral vein and grea ter saphenous vein outflow are patent. IMPRESSION: 1. Extensive deep venous thrombosis extending from the right femoral vein through the veins in the c [facility]. Dr. Huber discussed these findings with Dr. Oden at 5:20 PM. At her request the patien t will be instructed to go to her office. Reviewed, dictated and finalized at location A. IMPRESSION: 1. Extensive deep venous thrombosis extending from the right femoral vein thro ugh the veins in the calf. Dr. Huber discussed these findings with Dr. Berna cardenas at 5:20 PM. At her request the patient will be instructed to go to her o ffice.
--- NOTE | ~2020-11-06 | XR_ITS ---
EXAMINATION: XR ankle RT min 3V DATE: 11/06/2020 17:34 INDICATION: Right ankle pain and edema. TECHNIQUE: 4 views of right ankle were obtained. COMPARISON: None. FINDINGS: Bone alignment is normal. No fracture. There is mild osteoarthritis of the ankle joint and talonavicular joint characterized by tiny marginal osteophytes. There is an enthesophyte at the plant ar aspect of calcaneal tuberosity. There is ankle soft tissue swelling. IMPRESSION: 1. Mild polyarticular osteoarthritis. Reviewed, dictated and finalized at location A.
== END 2020-11-06 16:51 | disposition home or self-care (01) ==
LOC: ANHIMG 16:52
PROVIDERS: PCP Family Medicine; Visit Provider Family Medicine
DX: I82.411 Acute embolism and thrombosis of right femoral vein (principal); M19.071 Primary osteoarthritis, right ankle and foot
CPT/HCPCS: 73610; 93971

== ENCOUNTER 2022-05-02 10:01 | Outpatient (CLI) | payer OTHER, SELFPAY ==
--- NOTE | ~2022-05-02 | US_ITS ---
EXAMINATION: US venous doppler [facility] DATE: 05/02/2022 09:15 INDICATION: Localized right lower limb swelling TECHNIQUE: Grayscale ultrasound images without and with compression and Doppler ultrasound images of the bilateral lower extremity veins were obtained. COMPARISON: None. FINDINGS: Occlusive noncompressible thrombus in the distal right superficial femoral vein, the popliteal vein a nd portions of the paired right posterior tibial veins. The visualized portions of right common femor al vein, profunda (deep) femoral vein, proximal to mid femoral vein, peroneal veins, gastrocnemius ve in and greater saphenous vein outflow are patent. The visualized portions of left common femoral vein, profunda femoral vein, femoral vein, popliteal v ein, posterior tibial veins, peroneal veins, gastrocnemius vein and greater saphenous vein outflow ar e patent. IMPRESSION: 1. Persistent deep venous thrombosis in the distal right femoral,, right popliteal and . Right poste rior tibial veins. The previously thrombosed right peroneal and gastrocnemius veins are now patent. 2. No left-sided deep venous thrombosis. Reviewed, dictated and finalized at location A. IMPRESSION: 1. Persistent deep venous thrombosis in the distal right femoral,, right popli teal and . Right posterior tibial veins. The previously thrombosed right perone al and gastrocnemius veins are now patent. 2. No left-sided deep venous thrombosis.
--- NOTE | ~2022-05-02 | XR_ITS ---
EXAMINATION: XR foot LT min 3V DATE: 05/02/2022 09:14 INDICATION: Left foot pain TECHNIQUE: Dorsoplantar, lateral, and 2 oblique views of the left foot were obtained. COMPARISON: None. FINDINGS: Bone alignment is normal. There is a questionable avulsion injury at the tip of the lateral malleolus. There appears to be lateral soft tissue swelling of ankle. A plantar calcaneal enthesophy te is noted. IMPRESSION: 1. Possible avulsion injury at the tip of the lateral malleolus. Recommend clinical correlation for t enderness at this site. Reviewed, dictated and finalized at location A. IMPRESSION: 1. Possible avulsion injury at the tip of the lateral malleolus. Recommend clin ical correlation for tenderness at this site.
[2022-05-02 10:23] LABS: Basophils Absolute Auto 0.1 K/mm3 (0.0-0.1); Basophils Percent Auto 1.1 % (0.2-1.2); Eosinophils Absolute Auto 0.1 K/mm3 (0-0.3); Hematocrit 43.5 % (42.0-52.0); Hemoglobin 14.8 g/dL (14.0-18.0); Immature Granulocyte Absolute 0.06 K/mm3 (0.00-0.031); Lymphocytes Absolute Auto 1.27 K/mm3 (0.9-3.2); Lymphocytes Percent Auto 20.4 % (18.3-44.2); Mean Corpuscular Hemoglobin 29.8 pg (26-34); Mean Corpuscular Volume 87.5 fl (80-100); Mean Platelet Volume 9.4 fl (7.4-10.4); Monocytes Absolute Auto 0.6 K/mm3 (0.1-0.6); Monocytes Percent Auto 9.2 % (2.6-8.5); Neutrophils Absolute Auto 4.2 K/mm3 (1.3-6.7); Neutrophils Percent Auto 67.3 % (45.5-73.1); Platelet Count Result 174 k/mm3 (150-375); Red Blood Count 4.97 M/mm3 (4.6-6.20); Red Cell Distribution Width 13.2 % (11.5-14.5); White Blood Count 6.2 K/mm3 (4.5-10.0)
[2022-05-02 10:35] LABS: Alanine Aminotransferase 24 U/L (6-50); Albumin Level 4.6 g/dL (3.5-5.1); Alkaline Phosphatase 47 U/L (38-126); Anion Gap 7 mmol/L (8-16); Aspartate Amino Transferase 25 U/L (17-59); Bilirubin,Total 0.6 mg/dL (0.2-1.3); Blood Urea Nitrogen 24 mg/dL (9-20); Calcium 9.4 mg/dL (8.4-10.2); Carbon Dioxide 27 mmol/L (22-30); Chloride 105 mmol/L (98-107); Estimated Glomerular Filt Rate > 60; Glucose 123 mg/dL (65-110); Potassium 4.5 mmol/L (3.4-5.0); Sodium 139 mmol/L (137-145)
[2022-05-02 11:48] LABS: Erythrocyte Sedimentation Rate 12 mm/hr (0-20)
[2022-05-11 15:25] LABS: Antithrombin III Activity 114 % normal (80-135); Factor V Leiden Mutation NEGATIVE; Protein S Antigen, Free 147 % normal (57-171)
== END 2022-05-02 10:02 | disposition home or self-care (01) ==
LOC: ANHIMG 10:01
PROVIDERS: PCP Family Medicine; Visit Provider Physician Assistant
DX: I48.91 Unspecified atrial fibrillation (principal); M79.605 Pain in left leg; M25.572 Pain in left ankle and joints of left foot; R60.0 Localized edema; Z86.718 Personal history of other venous thrombosis and embolism; I82.411 Acute embolism and thrombosis of right femoral vein; I82.431 Acute embolism and thrombosis of right popliteal vein; I82.441 Acute embolism and thrombosis of right tibial vein
CPT/HCPCS: 36415; 73630; 80053; 81240; 81241; 85025; 85301; 85303; 85306; 85652; 93970

== ENCOUNTER 2022-10-13 10:44 | Outpatient (CLI) | payer OTHER, SELFPAY ==
--- NOTE | ~2022-10-13 | XR_ITS ---
Right elbow Technique: AP, oblique, and lateral views were obtained. Clinical History: Pain Findings: There is mild prominence of the fat pads, suggestive elbow joint effusion. This raises the possibility of occult radial head fracture. Impression: Suspected elbow joint effusion. This raises the possibility of occult radial head fracture. Reviewed, dictated and finalized at [facility]. Impression: Suspected elbow joint effusion. This raises the possibility of occult radial he ad fracture.
== END 2022-10-13 10:45 | disposition home or self-care (01) ==
PROVIDERS: PCP Family Medicine; Visit Provider Nurse Practitioner Gerontology
DX: M25.521 Pain in right elbow (principal); R93.6 Abnormal findings on diagnostic imaging of limbs
CPT/HCPCS: 73080

== ENCOUNTER 2022-11-19 18:41 | Inpatient (IN) | payer OTHER, SELFPAY ==
--- NOTE | ~2022-11-19 | CT_ITS ---
EXAMINATION: CT soft tissue neck w con DATE: 11/19/2022 20:08 INDICATION: Pharyngitis. Unable to swallow secretions. TECHNIQUE: Computed tomography (CT) of the neck was performed with 75 mL Omnipaque-350 intravenous co ntrast. Automated exposure control and iterative reconstruction technique were employed. The dose-amy gth product was 633.40 mGy-cm. COMPARISON: None FINDINGS: There is mucosal thickening the hypopharynx most prominent along the posterior wall as well as thicke kristin of the bilateral aryepiglottic folds. There is only minimal thickening of the epiglottis proper. There is no evident edema or thickening of the fat in the retropharyngeal space. No evident narrowin g of the subglottic airway. The lingual and palatine tonsils and oropharyngeal mucosa remain normal. There is however somewhat nodular appearing thickening of the mucosa along the posterior nasopharynx. The bilateral parotid and submandibular glands are normal. Thyroid is normal. No pathologically enlar ged craniocervical lymphadenopathy. The visualized apices of the lungs and superior mediastinum are u nremarkable. Mild to moderate cervical spondylosis. The cervical vasculature is unremarkable. Visuali zed portion of the brain are unremarkable. IMPRESSION: 1. Mucosal thickening in the hypopharynx including of the aryepiglottic folds but with only minimal t hickening of the epiglottis consistent with a pharyngitis and epiglottitis. 2. Nodular thickening of the mucosa of the posterior nasopharynx which given the findings in the hypo pharynx noted also most likely infectious/inflammatory in etiology although differential would includ e lymphoma or other malignancy. Dr. Huber discussed this and the above findings with Dr. Levy at 8 :25 PM. Reviewed, dictated and finalized at location A. IMPRESSION: 1. Mucosal thickening in the hypopharynx including of the aryepiglottic folds b ut with only minimal thickening of the epiglottis consistent with a pharyngitis and epiglottitis. 2. Nodular thickening of the mucosa of the posterior nasopharynx which given th e findings in the hypopharynx noted also most likely infectious/inflammatory in etiology although differential would include lymphoma or other malignancy. Dr. Huber discussed this and the above findings with Dr. Levy at 8:25 PM.
[2022-11-19 19:09] VITALS: BP 138/78; PULSE 108; RESP 22; TEMP 37.7; O2SAT 97
[2022-11-19] MEDS: SODIUM CHLORIDE 0.9% IV 2,000 ML 999 ML IV CONT (19:44)
[2022-11-19] MEDS: HYDROmorphone HCL INJ (*CRX) 1 MG/ML SYR 0.5 MG IV PUSH (19:44)
[2022-11-19 19:46] LABS: Basophils Absolute Auto 0.1 K/mm3 (0.0-0.1); Basophils Percent Auto 0.4 % (0.2-1.2); Hematocrit 42.1 % (42.0-52.0); Hemoglobin 14.4 g/dL (14.0-18.0); Immature Granulocyte Absolute 0.11 K/mm3 (0.00-0.031); Immature Granulocyte Percent A 0.7 % (0-0.5); Lymphocytes Absolute Auto 1.23 K/mm3 (0.9-3.2); Lymphocytes Percent Auto 8.3 % (18.3-44.2); Mean Corpuscular HGB Conc 34.2 g/dl (32-36); Mean Corpuscular Hemoglobin 29.4 pg (26-34); Mean Corpuscular Volume 85.9 fl (80-100); Mean Platelet Volume 8.9 fl (7.4-10.4); Monocytes Absolute Auto 1.4 K/mm3 (0.1-0.6); Monocytes Percent Auto 9.3 % (2.6-8.5); Neutrophils Absolute Auto 12.1 K/mm3 (1.3-6.7); Neutrophils Percent Auto 81.3 % (45.5-73.1); Platelet Count Result 219 k/mm3 (150-375); Red Cell Distribution Width 13.7 % (11.5-14.5); White Blood Count 14.9 K/mm3 (4.5-10.0)
[2022-11-19 19:47] VITALS: BP 137/86; PULSE 104; RESP 13; O2SAT 99
[2022-11-19 19:55] LABS: Anion Gap 6 mmol/L (8-16); Blood Urea Nitrogen 23 mg/dL (9-20); Calcium 9.3 mg/dL (8.4-10.2); Carbon Dioxide 31 mmol/L (22-30); Chloride 101 mmol/L (98-107); Estimated CRCL calculation 66 ml/min; Estimated Glomerular Filt Rate > 60; Glucose 137 mg/dL (65-110); Potassium 3.6 mmol/L (3.4-5.0); Sodium 138 mmol/L (137-145)
[2022-11-19 19:56] LABS: Lactic Acid Reflex 1.1 mmol/L (0.7-2.0)
[2022-11-19 20:10] LABS: Strep Group A RT-PCR NOT DETECTED (Negative)
[2022-11-19 20:13] LABS: Influenza A QL RT-PCR Negative (Negative); Influenza B QL RT-PCR Negative (Negative); RSV RNA, RT-PCR Negative (Negative); SARS-CoV-2 RNA PCR Negative (Negative)
[2022-11-19] MEDS: AMPICILLIN SULB 3 GM/NS 100 ML 3 GM/100 ML VIAL IVPB (20:39)
[2022-11-19] MEDS: racEPINEPHrine 2.25% NEBU SOLN 0.5 ML VIAL.NEB INHALATION (20:46)
[2022-11-19 20:51] VITALS: PULSE 95; RESP 16
--- NOTE | 2022-11-19 20:52 | ED.GENADULT ---
HPI - General Adult General Chief complaint: Upper Respiratory Infection Stated complaint: can't talk too much fluid in throat Time Seen by Provider: 11/19/22 19:09 History of Present Illness HPI narrative: This is a 52-year-old male presenting ED with a chief complaint of throat pain. Patient says that 2 days ago started having runny nose and URI symptoms. Starting today start have severe throat pain. He has lost his voice. He has severe pain on swallowing and has been spitting his secretions into a cup. He was seen in urgent care where he get negative strep and viral swabs. Patient has not taken antibiotics. Patient denies fevers. No trismus. Related Data Allergies Allergy/AdvReac Type Severity Reaction Status Date / Time tetracycline Allergy Mild Hives Verified 10/13/22 09:57 [facility] Past Medical History Medical History Acute deep vein thrombosis (DVT) of right lower extremity Atrial fibrillation Surgical History Surgical History History of appendectomy History of tonsillectomy and adenoidectomy Family History Family History Grandparent Heart disease Mother Heart disease Social History Social History Social History: Smoking status: Never smoker Second hand tobacco smoke exposure: No Alcohol intake: former Substance use: never Substance use type: does not use Living arrangements: with family Occupation/Education: occupation 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 Moving 4/4 extremities SKIN:: Warm, dry. Normal color PSYCHIATRIC: Normal affect Course Vital Signs Vital signs: Vital Signs Temperature 99.9 F H 11/19/22 19:09 Pulse Rate 108 H 11/19/22 19:09 Respiratory Rate 22 H 11/19/22 19:09 Blood Pressure 138/78 11/19/22 19:09 Pulse Oximetry 97 11/19/22 19:09 Oxygen Delivery Room Air 11/19/22 19:09 Temperature 99.9 F H 11/19/22 19:09 Pulse Rate 102 H 11/19/22 21:00 Respiratory Rate 18 11/19/22 21:00 Blood Pressure 137/86 11/19/22 19:47 Pulse Oximetry 99 11/19/22 19:47 Oxygen Delivery Room Air 11/19/22 19:09 Medical Decision Making MDM Narrative Medical decision making narrative: -Presentation: 52-year-old male presenting with throat pain and difficulty swallowing his secretions. 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 Metabolic panel unremarkable. Viral swabs strep undetectable. Soft tissue CT of the neck showed: 1. Mucosal thickening in the hypopharynx including of the aryepiglottic folds but with only minimal thickening of the epiglottis consistent with a pharyngitis and epiglottitis. 2. 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
[2022-11-19 21:00] VITALS: PULSE 102; RESP 18
--- NOTE | 2022-11-19 21:13 | PM.IMHP ---
H&P: HPI History of Present Illness Date/Time: 11/19/22 21:13 Chief Complaint: dysphagia Narrative: This is a 52-year-old male with past medical history significant for atrial fibrillation, rate controlled and anticoagulated, DVT. Patient presents to the emergency room due to difficulty swallowing and throat pain for the last day or so patient has not been able to swallow his own secretions, he presented via private vehicle, patient denies any cough, sputum production, fevers, rigors, chills, in emergency room patient received racemic epinephrine and IV steroids and a dose of antibiotics which seemed to have improved his initial symptoms at presentation however upon my visit to emergency room was noted patient was spitting in a bottle when questioned about a said that he was hard to swallow and was having backup of his secretions ENT was consulted patient is now status post direct laryngoscopy and it been admitted to the hospital for further evaluation management and treatment. a CT of soft tissue of the neck was reported as: EXAMINATION: CT soft tissue neck w con DATE: 11/19/2022 20:08 INDICATION: Pharyngitis. Unable to swallow secretions. TECHNIQUE: Computed tomography (CT) of the neck was performed with 75 mL Omnipaque-350 intravenous contrast. Automated exposure control and iterative reconstruction technique were employed. The dose-length product was 633.40 mGy-cm. COMPARISON: None FINDINGS: There is mucosal thickening the hypopharynx most prominent along the posterior wall as well as thickening of the bilateral aryepiglottic folds. There is only minimal thickening of the epiglottis proper. There is no evident edema or thickening of the fat in the retropharyngeal space. No evident narrowing of the subglottic airway. The lingual and palatine tonsils and oropharyngeal mucosa remain normal. There is however somewhat nodular appearing thickening of the mucosa along the posterior nasopharynx. The bilateral parotid and submandibular glands are normal. Thyroid is normal. No pathologically enlarged craniocervical lymphadenopathy. The visualized apices of the lungs and superior mediastinum are unremarkable. Mild to moderate cervical spondylosis. The cervical vasculature is unremarkable. Visualized portion of the brain are unremarkable. IMPRESSION: 1. Mucosal thickening in the hypopharynx including of the aryepiglottic folds but with only minimal thickening of the epiglottis consistent with a pharyngitis and epiglottitis. 2. Nodular thickening of the mucosa of the posterior nasopharynx which given the findings in the hypopharynx noted also most likely infectious/inflammatory in etiology although differential would include lymphoma or other malignancy. Dr. Huber discussed this and the above findings with Dr. Levy at 8:25 PM. Review of Systems Review of Systems: dysphagia, throat pain Constitutional: Constitutional: Denies chills, Denies fever(s), Denies malaise and Denies night sweats Eyes: Eyes: Denies change in vision ENT: Reports dysphagia, Denies lip swelling, Denies nasal congestion, Denies nasal discharge, Denies nasal obstruction and Reports odynophagia Cardiovascular: Cardiovascular: Denies chest pain, Denies leg edema and Denies lightheadedness Respiratory: Respiratory: Denies cough, Denies excessive phlegm production, Denies dyspnea and Denies wheezing Gastrointestinal: Gastrointestinal: Denies abdominal pain, Denies dyspepsia, Denies heartburn, Denies diarrhea, Denies nausea and Denies vomiting Genitourinary: Genitourinary: Denies dysuria Musculoskeletal: Musculoskeletal: Denies myalgias and Denies joint swelling Integumentary/Breasts: Skin/Breast: Denies rash Neurologic: Denies focal weakness and Denies Sensory deficit (Neuro) Psychiatric: Psychiatric: Reports no additional psychiatric complaints and Reports as per HPI Endocrine: Endocrine: Denies cold intolerance, Denies flushing, Denies heat intolerance
--- NOTE | 2022-11-19 23:05 | WPDPROCEDUR ---
Procedures Laryngoscopy Sedation/Analgesia: other (afrin and lidocaine, one percent) Technique: video laryngoscope Laryngoscopy Comments: Erythematous purulent adenoid tissue, and erythematous edematous vocal processes, cords visible, epiglottis omega shaped, mildl edematous, intubatable.
--- NOTE | 2022-11-19 23:08 | WPDCN ---
Assessment and Plan Assessment and plan (1) Laryngitis: Code(s): J04.0 - Acute laryngitis Status: Acute Assessment and Plan: Decadron, 2 more doses, q 8 hours, 8-10mg. Continue iv unasyn, ok for sips of water, advance as tolerated, trend wbc, please call with any questions. Scope shows mild epiglottic edema, more so edema of vocal processes. Cords visible, intubatable. HPI Data of Consult Date/Time: 11/19/22 23:08 Requesting Physician: Silvia Plaza MD Primary Care Provider: Hien Oden MD Consult Narrative Reason for consult: odynophagia, dyspagia Narrative: Zechariah Bella is a 52 year old male, recently ill, recent worsening. Personal review of ct demonstrates edema around the laryngeal inlet, no abscess. Patient reports improvement after decadron and unasyn. Review of Systems Review of Systems: All systems reviewed & are unremarkable except as noted in HPI and below PMFSH Past Medical History Medical History Acute deep vein thrombosis (DVT) of right lower extremity Atrial fibrillation Surgical History Surgical History History of appendectomy History of tonsillectomy and adenoidectomy Family History Family History Grandparent Heart disease Mother Heart disease Social History Social History Social History: Smoking status: Never smoker Second hand tobacco smoke exposure: No Alcohol intake: former Substance use: never Substance use type: does not use Living arrangements: with family Occupation/Education: occupation 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 Gender identity (if verbalized by the patient): Male Sexual Orientation (if Verbalized by the Patient): Straight or Heterosexual Spiritual care concerns: No Meds Home Medications and Allergies Home Medications Medication Instructions Recorded Confirmed Type metoprolol succinate 25 mg 12.5 mg PO DAILY #30 tabs 08/05/22 10/13/22 Rx tablet,extended release 24 hr rivaroxaban 20 mg tablet (Xarelto) See Rx Instructions .Route 10/27/22 Rx .COMPLEX #30 tabs Allergies Allergy/AdvReac Type Severity Reaction Status Date / Time tetracycline Allergy Mild Hives Verified 10/13/22 09:57 Vital Signs Vital Signs - 24 hr 11/19/22 19:09 11/19/22 19:47 11/19/22 20:51 Temperature 37.7 C H Pulse Rate 108 H 104 H 95 Respiratory Rate 22 H 13 16 Blood Pressure 138/78 137/86 Pulse Oximetry 97 99 Oxygen Delivery Room Air 11/19/22 21:00 Temperature Pulse Rate 102 H Respiratory Rate 18 Blood Pressure Pulse Oximetry Oxygen Delivery Exam Narrative: oral cavity, mild edema/erythema of posterior oropharynx. See procedure note. Results Labs 11/19/22 19:39 11/19/22 19:39 Labs: Short CBC 11/19/22 Range/Units 19:39 WBC 14.9 H (4.5-10.0) K/mm3 Hgb 14.4 (14.0-18.0) g/dL Hct 42.1 (42.0-52.0) % Plt Count 219 (150-375) k/mm3 BMP 11/19/22 19:39 Sodium 138 Potassium 3.6 Chloride 101 Carbon Dioxide 31 H BUN 23 H Creatinine 1.20 Glucose 137 H Calcium 9.3
[2022-11-20] VITALS (15 sets, daily range): BP systolic 125–153; BP diastolic 82–92; PULSE 71–98; RESP 12–18; TEMP 36.3–36.7; O2SAT 96–99; BMI 31.6
--- NOTE | 2022-11-20 00:05 | ADMGEN ---
This patient, Zechariah Bella, was admitted to IMU Room 204-01 at 0005. Patient/family oriented to hospital policies and general routines including ID bracelet, bed and alarms, visiting hours, pain management, procedures, bathroom and other care routines, personal items, smoking policy, room service/diet, and visiting hours. Information on how to activate the Rapid Response Team has been discussed. Patient/Family are encouraged to report perceived risks to care and to ask questions if they do not understand what they are told or what they should do.
[2022-11-20] MEDS: LACTATED RINGERS 1,000 ML 125 ML IV CONT ×2 (00:26→09:23)
[2022-11-20] MEDS: HYDROmorphone HCL INJ (*CRX) 1 MG/ML SYR 0.5 MG IV PUSH ×3 (02:05→20:37)
[2022-11-20] MEDS: AMPICILLIN SULB 3 GM/NS 100 ML 3 GM/100 ML VIAL IVPB ×4 (02:06→20:30)
--- NOTE | 2022-11-20 08:42 | PM.IMPN ---
Progress Note: A&P Assessment and Plan (1) Laryngitis: Code(s): J04.0 - Acute laryngitis Status: Acute Assessment and Plan: status post direct laryngoscopy, follow ENT recommendations cont steroids, antibiotics (2) Acute epiglottitis: Code(s): J05.10 - Acute epiglottitis without obstruction Status: Acute Assessment and Plan: started on Unasyn cultures in progress (3) Leukocytosis: Code(s): D72.829 - Elevated white blood cell count, unspecified Status: Acute Assessment and Plan: likely secondary to epiglottitis supportive care (4) Severe sleep apnea: Code(s): G47.30 - Sleep apnea, unspecified Status: Acute Assessment and Plan: patient is currently awaiting to be fitted for CPAP (5) Atrial fibrillation: Qualifiers: Atrial fibrillation type: paroxysmal Qualified Code(s): I48.0 - Paroxysmal atrial fibrillation Code(s): I48.91 - Unspecified atrial fibrillation Status: Acute Assessment and Plan: continue rate control with metoprolol and anticoagulation Plan DVT prophylaxis with xarelto GI prophylaxis not indicated Code status full code Subjective Date/time seen: 11/20/22 08:42 Interval history: 52-year-old male with history of AFib presenting with dysphagia and sore throat found to have acute laryngitis. No overnight events noted. No chest pain or shortness of breath. No nausea, vomiting or diarrhea. No fevers or chills. Swelling much improved, voice stronger. Still with some pain with swallowing. Review of Systems Review of Systems: 12 point review of systems was assessed and was negative except as noted in the HPI Exam Narrative: General: No acute distress, alert and oriented per baseline HEENT: Atraumatic, normocephalic, mucous membranes moist CV: Regular rate and rhythm, S1, S2 Lungs: Clear to auscultation bilaterally, no rales or crackles noted, no wheezes, good air entry Abdomen: Soft, nontender, nondistended Extremities: Normal to inspection Skin: No rashes noted, no lesions or wounds seen Psych: Euthymic, normal affect Objective Data Vital Signs Vital Signs: Vital Signs - 24 hr 11/19/22 19:09 11/19/22 19:47 11/19/22 20:51 Temperature 99.9 F H Pulse Rate 108 H 104 H 95 Respiratory Rate 22 H 13 16 Blood Pressure 138/78 137/86 Pulse Oximetry 97 99 Oxygen Delivery Room Air 11/19/22 21:00 11/20/22 00:05 11/20/22 00:21 Temperature 97.9 F Pulse Rate 102 H 98 84 Respiratory Rate 18 18 Blood Pressure 153/90 H Pulse Oximetry 99 Oxygen Delivery 11/20/22 00:21 11/20/22 02:00 11/20/22 04:00 Temperature Pulse Rate 88 72 71 Respiratory Rate 18 Blood Pressure Pulse Oximetry 99 Oxygen Delivery Room Air 11/20/22 04:00 11/20/22 04:00 11/20/22 06:00 Temperature 97.6 F Pulse Rate 71 82 85 Respiratory Rate 18 18 Blood Pressure 127/83 Pulse Oximetry 99 99 Oxygen Delivery Room Air 11/20/22 08:00 Temperature 97.5 F L Pulse Rate 80 Respiratory Rate 16 Blood Pressure 135/82 Pulse Oximetry 98 Oxygen Delivery Intake/Output Intake/Output: Intake & Output 11/17/22 11/18/22 11/19/22 11/20/22 23:59 23:59 23:59 23:59 Intake Total 2200 550 Balance 2200 550 Meds/Results Medications: Active Medications Generic Name Dose Route Start Last Admin Trade Name Freq PRN Reason Stop Dose Admin Dexamethasone Sodium Phosphate 10 mg 11/20/22 03:00 11/20/22 02:05 Dexamethasone Sod Phos Inj 10 Mg/Ml 1 Ml Vial IV PUSH 10 mg Q6H NICK Administration Hydromorphone HCl 0.5 mg 11/20/22 00:34 11/20/22 02:05 Hydromorphone Hcl Inj (*Crx) 1 Mg/Ml Syr IV PUSH 0.5 mg Q3H PRN Administration Pain Rated 7-10 Ampicillin Sodium/Sulbactam Sodium 3 gm in 100 mls @ 200 mls/hr 11/20/22 03:00 11/20/22 02:06 Unasyn 3 Gm/Ns 100 Ml IVPB 200 mls/hr Q6H NICK Adm
[2022-11-20] MEDS: METOPROLOL SUCCINATE EXT REL 25 MG TABCR PO (11:39)
[2022-11-20] MEDS: racEPINEPHrine 2.25% NEBU SOLN 0.5 ML VIAL.NEB INHALATION (13:13)
--- NOTE | 2022-11-20 16:14 | PC.NURSE ---
This patient, Zechariah Bella, was transferred to [facility] [place] on 11/20/22 at 1610. Personal belongings sent with patient. Appropriate documentation sent with patient.
--- NOTE | 2022-11-20 16:21 | PC.NURSE ---
Pt received from [facility]. Pt oriented to unit.
[2022-11-20] MEDS: RIVAROXABAN 20 MG TABLET PO (17:15)
--- NOTE | 2022-11-20 20:51 | PC.NURSE ---
LACHO Cloud informed about x2 + BC gram - bacilli and pt currently receiving ampillicin 3 g IV q6h
[2022-11-21 00:35] VITALS: BP 140/90; PULSE 82; RESP 16; TEMP 36.3; O2SAT 98
[2022-11-21] MEDS: AMPICILLIN SULB 3 GM/NS 100 ML 3 GM/100 ML VIAL IVPB ×3 (03:37→13:55)
[2022-11-21 06:00] VITALS: BP 130/88; PULSE 84; RESP 20; TEMP 35.7; O2SAT 97
--- NOTE | 2022-11-21 08:13 | PM.DS ---
DS: Admitting Diagnosis Discharge Date 11/21/22 Admitting Diagnosis laryngitis DS: Discharge Diagnosis Discharge Diagnosis (1) Laryngitis: Code(s): J04.0 - Acute laryngitis Status: Acute Assessment and Plan: status post direct laryngoscopy, follow ENT recommendations cont steroids, antibiotics (2) Acute epiglottitis: Code(s): J05.10 - Acute epiglottitis without obstruction Status: Acute Assessment and Plan: started on Unasyn cultures in progress (3) Leukocytosis: Code(s): D72.829 - Elevated white blood cell count, unspecified Status: Acute Assessment and Plan: likely secondary to epiglottitis supportive care (4) Severe sleep apnea: Code(s): G47.30 - Sleep apnea, unspecified Status: Acute Assessment and Plan: patient is currently awaiting to be fitted for CPAP (5) Atrial fibrillation: Qualifiers: Atrial fibrillation type: paroxysmal Qualified Code(s): I48.0 - Paroxysmal atrial fibrillation Code(s): I48.91 - Unspecified atrial fibrillation Status: Acute Assessment and Plan: continue rate control with metoprolol and anticoagulation Plan DVT prophylaxis with xarelto GI prophylaxis not indicated Code status full code DS: Summary Hospital Course Hospital Course: 52-year-old male with history of atrial fibrillation anticoagulated with Eliquis is presenting with difficulty swallowing and throat pain and found to have acute laryngitis. ENT was consulted and recommended Decadron and Unasyn. Patient's symptoms resolved and he was discharged on Augmentin with close outpatient follow-up by ENT. Of note, blood cultures were positive for h flu, which is the most likely etiology of patient's epiglottitis/laryngitis. Repeat blood cultures ordered and pending. Will d/c on longer 14 day course and confirm outpatient follow up on repeat blood cultures to confirm resolution. Please see above and med rec for details. Time Spent with Patient Time attestation: Total time spent providing and/or coordinating discharge services: Exam Narrative: General: No acute distress, alert and oriented per baseline HEENT: Atraumatic, normocephalic, mucous membranes moist CV: Regular rate and rhythm, S1, S2 Lungs: Clear to auscultation bilaterally, no rales or crackles noted, no wheezes, good air entry Abdomen: Soft, nontender, nondistended Extremities: Normal to inspection Skin: No rashes noted, no lesions or wounds seen Psych: Euthymic, normal affect DS: Data Data Completed and Pending Labs on day of discharge: Preliminary micro results at discharge 11/19/22 20:47 Blood Culture - Preliminary Blood Gram negative bacilli isolated 11/19/22 20:47 Blood Culture - Preliminary Blood Gram negative bacilli isolated Discharge Plan Discharge Attending physician on discharge: Shayla Nice Discharging Clinician: Shayla Nice Patient Disposition: Home, Self-Care Activity: as tolerated Diet: as tolerated Patient Instructions: Antibiotic Form, Rivaroxaban (By mouth) Stand Alone Forms: General Discharge Information Follow-up/Referrals: Hien Oden MD [Primary Care Provider] - Discharge Medications: New amoxicillin-pot clavulanate 875-125 mg tablet 1 tablet PO Q12H 14 Days Qty: 28 0RF Continued metoprolol succinate 25 mg tablet extended release 24 hr 25 mg PO DAILY Xarelto 20 mg tablet 20 mg PO DAILY Date of admission: 11/19/22 21:30 Primary Care Provider: Hien Oden Admitting Provider: Silvia Plaza V. Attending physician on admission: Silvia Plaza V. Condition: Critical
[2022-11-21 09:21] VITALS: PULSE 84
[2022-11-21] MEDS: METOPROLOL SUCCINATE EXT REL 25 MG TABCR PO (09:21)
[2022-11-21 14:00] VITALS: BP 120/85; PULSE 85; RESP 16; TEMP 36.5; O2SAT 98
[2022-11-21 15:47] LABS: Alanine Aminotransferase 48 U/L (6-50); Albumin Level 3.6 g/dL (3.5-5.1); Alkaline Phosphatase 52 U/L (38-126); Anion Gap 9 mmol/L (8-16); Aspartate Amino Transferase 60 U/L (17-59); Bilirubin,Total 0.6 mg/dL (0.2-1.3); Blood Urea Nitrogen 22 mg/dL (9-20); Calcium 8.7 mg/dL (8.4-10.2); Carbon Dioxide 26 mmol/L (22-30); Chloride 104 mmol/L (98-107); Estimated CRCL calculation 99 ml/min; Estimated Glomerular Filt Rate > 60; Glucose 176 mg/dL (65-110); Potassium 3.9 mmol/L (3.4-5.0); Sodium 139 mmol/L (137-145)
[2022-11-21] MEDS: RIVAROXABAN 20 MG TABLET PO (16:35)
[2022-11-21 21:45] LABS: Basophils Percent Auto 0.3 % (0.2-1.2); Hematocrit 44.4 % (42.0-52.0); Hemoglobin 14.2 g/dL (14.0-18.0); Immature Granulocyte Absolute 0.13 K/mm3 (0.00-0.031); Immature Granulocyte Percent A 0.9 % (0-0.5); Lymphocytes Absolute Auto 0.88 K/mm3 (0.9-3.2); Lymphocytes Percent Auto 6.2 % (18.3-44.2); Mean Corpuscular Hemoglobin 29.2 pg (26-34); Mean Corpuscular Volume 91.2 fl (80-100); Mean Platelet Volume 9.9 fl (7.4-10.4); Monocytes Absolute Auto 0.7 K/mm3 (0.1-0.6); Monocytes Percent Auto 4.8 % (2.6-8.5); Neutrophils Absolute Auto 12.5 K/mm3 (1.3-6.7); Neutrophils Percent Auto 87.8 % (45.5-73.1); Platelet Count Result 280 k/mm3 (150-375); Red Blood Count 4.87 M/mm3 (4.6-6.20); White Blood Count 14.2 K/mm3 (4.5-10.0)
== END 2022-11-21 17:50 | disposition home or self-care (01) | DRG 153 ==
LOC: ANHED 21:00 → ANHIMU 22:34 → ANH3MEDSUR 11-20 16:24
PROVIDERS: Admitting Provider Internal Medicine; Emergency Provider Emergency Medicine; PCP Family Medicine; Visit Provider Student in an Organized Health Care Education/Training Program
DX: J05.10 Acute epiglottitis without obstruction (principal); B96.3 Hemophilus influenzae [H. influenzae] as the cause of diseases classified elsewhere; D72.828 Other elevated white blood cell count; I48.0 Paroxysmal atrial fibrillation; R13.10 Dysphagia, unspecified; G47.30 Sleep apnea, unspecified; Z20.822 Contact with and (suspected) exposure to COVID-19; Z86.718 Personal history of other venous thrombosis and embolism; Z90.49 Acquired absence of other specified parts of digestive tract
CPT/HCPCS: 36415; 70491; 80048; 80053; 83605; 83735; 85025; 87040; 87077; 87637; 87651; 94640; 96365; 96367; 96375; 99285; A9270; J0131; J0295; J1100; J1170; J7030; J7120; Q9967

== ENCOUNTER 2023-10-22 08:12 | Outpatient (CLI) | payer OTHER, SELFPAY ==
--- NOTE | ~2023-10-22 | US_ITS ---
EXAMINATION:US venous doppler LE RT INDICATION:Chronic deep venous thrombosis. Patient on blood thinners. TECHNIQUE: Multiple grayscale, color flow and Doppler images of the right lower extremity deep venous systems were obtained and reviewed. COMPARISON:Ultrasound dated 05/02/2022 FINDINGS: The common femoral, superficial femoral veins demonstrate normal respiratory variation, aug mentation and compressibility. There is deep venous thrombosis of the right popliteal and gastrocnemi us veins. Color flow is also seen within the posterior tibial, peroneal, greater saphenous and profun da veins. IMPRESSION: 1: Deep venous thrombosis of the right popliteal and gastrocnemius veins. Reviewed, dictated and finalized at location A.
== END 2023-10-22 08:13 | disposition home or self-care (01) ==
LOC: ANHIMG 08:18
PROVIDERS: PCP Family Medicine; Visit Provider Family Medicine
DX: I82.431 Acute embolism and thrombosis of right popliteal vein (principal); I82.461 Acute embolism and thrombosis of right calf muscular vein; M79.89 Other specified soft tissue disorders
CPT/HCPCS: 93971